=== PATIENT | female | born 1960 | race African-American/Black ===

== ENCOUNTER 2020-05-28 14:34 | Outpatient (REF) | payer OTHER, SELFPAY ==
--- NOTE | 2020-05-28 14:39 | US_ITS ---
EXAMINATION: ULTRASOUND SOFT TISSUE HEAD AND NECK CLINICAL INFORMATION: Localized enlarged lymph nodes. COMPARISON: None TECHNIQUE: Ultrasound imaging through bilateral neck was performed. FINDINGS: Both submandibular glands are homogeneous in echotexture with the right gland slightly larger than the left with right intraparotid lymph node measuring 0.85 cm. The left submandibular gland is unremarkable. A few scattered lymph nodes are seen in the right submandibular space measuring 1.1 x 0.5 x 1.0 cm and 0.9 x 0.5 x 0.9 cm in right lateral neck. US/US soft tiss head and/or neck IMPRESSION: Slightly asymmetrically enlarged right submandibular gland with intraparotid lymph node and right neck small lymph nodes likely benign. The left submandibular gland is unremarkable.
== END 2020-05-28 14:35 | disposition home or self-care (01) ==
LOC: HO.HMGCX 14:34
PROVIDERS: PCP Internal Medicine; Visit Provider Internal Medicine
DX: R59.0 Localized enlarged lymph nodes (principal)
CPT/HCPCS: 76536

== ENCOUNTER 2020-06-30 16:17 | Outpatient (REF) | payer OTHER, SELFPAY | END 2020-06-30 16:18 | disposition home or self-care (01) | LOC: HO.LNP 16:17 | PROVIDERS: Visit Provider Nurse Practitioner Family | DX: R35.0 Frequency of micturition (principal) | CPT/HCPCS: 87086 ==

== ENCOUNTER 2020-09-15 10:50 | Outpatient (REF) | payer OTHER, SELFPAY ==
[2020-09-15 13:44] LABS: MANUAL DIFF FLAG NO
[2020-09-15 13:52] LABS: Basophils Absolute Auto 0.1 X10*3/uL (0.0-0.2); Basophils Percent Auto 0.6 % (0-2); Eosinophils Absolute Auto 0.2 X10*3/uL (0.0-0.4); Eosinophils Percent Auto 2.3 % (0-4); Hematocrit 39.2 % (37-47); Hemoglobin 13.1 g/dl (12.0-16.0); Imm Gran Abs Auto 0.02 X10*3/uL (0.00-0.03); Imm Gran Pct Auto 0.3 % (0.0-0.4); Lymphocytes Absolute Auto 1.5 X10*3/uL (1.2-4.9); Lymphocytes Percent Auto 18.5 % (20-40); Mean Corpuscular HGB Conc 33.4 g/dl (31.0-35.0); Mean Corpuscular Hemoglobin 25.2 pg (27.0-33.0); Mean Corpuscular Volume 75.4 fL (80-98); Mean Platelet Volume 12.6 fL (9.4-12.3); Monocytes Absolute Auto 0.7 X10*3/uL (0.1-1.2); Monocytes Percent Auto 9.2 % (2-11); Neutrophils Absolute Auto 5.4 X10*3/uL (2.0-8.3); Neutrophils Percent Auto 69.1 % (45-73); Platelet Count 173 X10*3/uL (160-400); Red Cell Distribution Width 13.8 % (11.0-16.0); White Blood Count 7.8 X10*3/uL (4.8-10.8)
[2020-09-15 14:11] LABS: Alanine Aminotransferase 18 U/L (0-31); Albumin Level 4.3 g/dL (3.5-5.0); Alkaline Phosphatase 96 U/L (39-117); Anion Gap 14 (12-20); Aspartate Amino Transferase 20 U/L (5-31); Bilirubin Total 0.7 mg/dL (0.0-1.0); Blood Urea Nitrogen 18 mg/dL (9-16); Calcium 9.3 mg/dL (8.4-10.2); Carbon Dioxide 26 mmol/L (22-29); Chloride 104 mmol/L (96-108); Cholesterol 219 mg/dL; Estimated Glomerular Filt Rate > 60; Glucose Fasting 94 mg/dL (60-99); HDL Cholesterol 70 mg/dL; LDL Cholesterol Calculated 122 mg/dl; Potassium 4.1 mmol/L (3.3-5.1); Sodium 140 mmol/L (135-145); Total Protein 7.1 g/dL (6.5-8.0); Triglycerides 138 mg/dL
== END 2020-09-15 10:51 | disposition home or self-care (01) ==
LOC: HO.HMGCLDS 10:50
PROVIDERS: PCP Internal Medicine; Visit Provider Internal Medicine
DX: Z00.00 Encounter for general adult medical examination without abnormal findings (principal)
CPT/HCPCS: 36415; 80053; 80061; 84443; 85025

== ENCOUNTER 2020-09-22 14:26 | Outpatient (REF) | payer OTHER, SELFPAY ==
--- NOTE | ~2020-09-22 | US_ITS ---
EXAMINATION: US SOFT TISSUE NECK CLINICAL INFORMATION: Enlarged lymph nodes. Right clavicular adenopathy. COMPARISON: None TECHNIQUE: Ultrasound of the neck soft tissues is performed with high-frequency carlton-scale imaging and color Doppler. FINDINGS: THYROID BED: There are 2 small lymph nodes seen in the right supraclavicular area described by the patient. They measure 0.7 x 0.4 x 0.9 cm and 0.4 x 0.4 x 0.7 cm. No soft tissue abnormality seen. There is no abnormality seen in the contralateral left clavicular region. US/US soft tiss head and/or neck IMPRESSION: Two small lymph nodes seen in the right clavicular region. These lymph nodes have benign architecture with central echogenic medulla.
== END 2020-09-22 14:27 | disposition home or self-care (01) ==
LOC: HO.HMGCX 14:26
PROVIDERS: PCP Internal Medicine; Visit Provider Internal Medicine
DX: R59.9 Enlarged lymph nodes, unspecified (principal)
CPT/HCPCS: 76536

== ENCOUNTER 2021-04-07 13:55 | Outpatient (REF) | payer OTHER, SELFPAY ==
[2021-04-07 15:03] LABS: Influenza A PCR NEGATIVE (Negative); Influenza B PCR NEGATIVE (Negative); Resp Syncy Virus RNA Qual PCR NEGATIVE (Negative); SARS COV2 PCR INHOUSE NEGATIVE (Negative)
== END 2021-04-07 13:56 | disposition home or self-care (01) ==
LOC: HO.LNP 13:55
PROVIDERS: Visit Provider Internal Medicine
DX: Z20.822 Contact with and (suspected) exposure to COVID-19 (principal); R05.9 Cough, unspecified
CPT/HCPCS: 0241U

== ENCOUNTER 2021-07-16 10:05 | Outpatient (REF) | payer OTHER, SELFPAY ==
[2021-07-16 11:23] LABS: Hematocrit 39.1 % (37.0-47.0); Hemoglobin 13.2 g/dl (12.0-16.0); Mean Corpuscular HGB Conc 33.8 g/dl (31.0-35.0); Mean Corpuscular Hemoglobin 25.6 pg (27.0-33.0); Mean Corpuscular Volume 75.9 fL (80.0-98.0); Mean Platelet Volume 12.8 fL (9.4-12.3); Platelet Count 259 X10*3/uL (160-400); Red Blood Count 5.15 X10*6/uL (4.20-5.50); Red Cell Distribution Width 12.9 % (11.0-16.0); White Blood Count 10.3 X10*3/uL (4.8-10.8)
[2021-07-16 11:35] LABS: Appearance Urine CLEAR; Color Urine YELLOW; Glucose Urine UA NEG (NEG); Leukocyte Esterase Urine NEG (NEG); Nitrite Urine NEG (NEG); Specific Gravity - Urine 1.025 (1.005-1.025); Urine Blood NEG (NEG); Urine Ketones NEG (NEG); Urine Protein NEG (NEG-TRACE)
[2021-07-16 12:02] LABS: Alanine Aminotransferase 41 U/L (0-31); Albumin Level 4.2 g/dL (3.5-5.0); Alkaline Phosphatase 115 U/L (39-117); Anion Gap 12 (12-20); Aspartate Amino Transferase 33 U/L (5-31); Bilirubin Total 0.7 mg/dL (0.0-1.0); Blood Urea Nitrogen 15 mg/dL (9-16); Calcium 9.7 mg/dL (8.4-10.2); Carbon Dioxide 27 mmol/L (22-29); Chloride 107 mmol/L (96-108); Cholesterol 258 mg/dL; Estimated Glomerular Filt Rate > 60; Glucose Fasting 82 mg/dL (60-99); HDL Cholesterol 62 mg/dL; LDL Cholesterol Calculated 168 mg/dl; Sodium 142 mmol/L (135-145); Total Protein 7.1 g/dL (6.5-8.0); Triglycerides 143 mg/dL
[2021-07-16 12:22] LABS: TSH reflex Free T4 2.82 uIU/mL (0.32-4.0)
== END 2021-07-16 10:06 | disposition home or self-care (01) ==
LOC: HO.HMGCLDS 10:05
PROVIDERS: PCP Internal Medicine; Visit Provider Internal Medicine
DX: Z00.00 Encounter for general adult medical examination without abnormal findings (principal)
CPT/HCPCS: 36415; 80053; 80061; 81003; 84443; 85027

== ENCOUNTER 2022-03-09 13:19 | Outpatient (REF) | payer OTHER, SELFPAY ==
[2022-03-09 13:45] LABS: Binax Internal Control QC Valid; Binax Now Covid-19 Ag Negative (Negative); Binax Performed by: HO.BONILM
== END 2022-03-09 13:20 | disposition home or self-care (01) ==
LOC: HO.HMGCLDS 13:19
PROVIDERS: PCP Internal Medicine; Visit Provider Physician Assistant
DX: Z20.822 Contact with and (suspected) exposure to COVID-19 (principal); J32.9 Chronic sinusitis, unspecified
CPT/HCPCS: 87811; C9803

== ENCOUNTER 2022-04-02 17:47 | Outpatient (REF) | payer OTHER, SELFPAY ==
[2022-04-02 18:45] LABS: Influenza A PCR POSITIVE (Negative); Influenza B PCR NEGATIVE (Negative); Resp Syncy Virus RNA Qual PCR NEGATIVE (Negative); SARS COV2 PCR INHOUSE NEGATIVE (Negative)
== END 2022-04-02 17:48 | disposition home or self-care (01) ==
LOC: HO.LNP 17:47
PROVIDERS: Visit Provider Internal Medicine
DX: Z20.822 Contact with and (suspected) exposure to COVID-19 (principal); R43.9 Unspecified disturbances of smell and taste
CPT/HCPCS: 0241U

== ENCOUNTER 2023-02-18 08:43 | Outpatient (AMB) | payer OTHER, SELFPAY ==
[2023-02-18 08:45] VITALS: BP 100/66; PULSE 82; O2SAT 97; BMI 30.5
--- NOTE | 2023-02-18 08:45 | MHC.PC.OV ---
Vital Signs 02/18/23 08:45 Height 5 ft 2 in Weight 167 lb BMI 30.5 BP 100/66 Blood Pressure Location Lt brachial Position Sitting Pulse 82 Pulse Source Pulse Oximeter Pulse Oximetry (%) 97 Oxygen Delivery Method Room Air Intake Visit Reasons: Annual PE Intake Note: Pt is here today for PE. Allergies doxycycline Adverse Reaction (Intermediate, Verified 02/18/23 08:50) vomiting Medication List - Last Reconciled 02/18/23 by Elizabeth Saucedo MD albuterol sulfate 90 mcg/actuation 2 puffs PO Q6H PRN betamethasone valerate 0.1% appl topical celecoxib 200 mg PO DAILY loratadine 10 mg PO DAILY omeprazole 20 mg PO BID PRN umeclidinium-vilanterol 62.5-25 mcg/actuation (Anoro Ellipta) 1 inh inhalation DAILY zolpidem 5 mg PO BEDTIME PRN Tobacco use date assessed: 02/18/23 Dental Screening Dental Screen Date: 02/18/23 Did you have a dental visit in the last 12 months?: Yes Did you have a dental problem in the last 6 months where you did not have access to dental care?: No Was dental information given to patient?: Patient has dentist HPI Annual PE HPI Details Pt presents for PE. She complains of sinus congestion facial pain postnasal drip low-grade fever for 2 weeks. Patient complains of chronic urinary incontinence and frequent urination getting up at night a few times to urinate. She also reports chronic insomnia and zolpidem has not been helpful recently. [facility] Medical History COPD (chronic obstructive pulmonary disease) Esophageal stricture Cough Urinary incontinence Plantar fasciitis Sinusitis Vertigo Annual physical exam Hearing deficit Adenopathy Adenopathy, cervical Asthma Numbness of toes Interstitial lung disease GERD (gastroesophageal reflux disease) Anxiety and depression Surgical History S/P AMARILIS (total abdominal hysterectomy) No pertinent past surgical history Family History Father Substance use disorder Mother No problems noted. Son No problems noted. Brother Colon polyp Social History Housing: House Alcohol intake: current Alcohol intake frequency: holidays/special occasions only Patient Tobacco Use Status: Former Tobacco user e-Cigarette/Vaping Use: Never Used Current occupational status: retired Cognitive needs: No Hearing needs: No Vision needs: Yes Questionnaire Thrive Questionnaire Date Thrive assessed: 09/03/21 AUDIT C Alcohol Use Questionnaire (AUDIT-C) 1. How often do you have a drink containing alcohol?: 2-3 times a week 2. How many drinks containing alcohol do you have on a typical day when you are drinking?: 1 or 2 3. How often do you have six or more drinks on one occasion?: Never Total Score: 3 GINNA-7 AMB Questionnaire GINNA-7 Date GINNA - 7 assessed: 09/03/21 Source: Developed by Drs. Kishor García, Casi Beltran, Vahid Monterroso and colleagues, with an educational brayan from [employer]. Review of Systems Const All systems reviewed & are unremarkable except as noted in HPI and below Reports no additional complaints Eyes Reports no additional complaints ENT Reports no additional complaints Card Reports no additional complaints Resp Reports no additional complaints GI Reports no additional complaints Reports no additional complaints Musc Reports no additional complaints Physical exam (Primary Care) Vital Signs: Last Vital Signs Pulse 82 02/18/23 08:45 BP 100/66 02/18/23 08:45 Pulse Ox 97 02/18/23 08:45 Oxygen Delivery Method Room Air 02/18/23 08:45 BMI result Body Mass Index 30.5 Tobacco/Smoking Status: Tobacco use Status Tobacco use date assessed 02/18/23 02/18/23 08:58 Patient Tobacco Use Status Former Tobacco user 02/18/23 08:58 e-Cigarette/Vaping Use Never Used 02/18/23 08:47 Thrive Assessment: Date of Thrive Assessment Date Thrive assessed 09/03/21 02/18/23 08:47 Const General: no acute distress HENMT Head: Yes normal to inspection Ears: hearing grossly normal bilaterally Face and sinus: Yes normal facial exam Throat: Yes posterior oropharynx normal Eyes General: appearance normal, both eyes and all related structures Neck Neck: Yes no lymphadenopathy and Yes supple Resp Effort & Inspection: normal respiratory effort Auscultation: clear to auscultation bilaterally Cardio Rhythm: regular rhythm Heart sounds: S1 normal heart sound present and S2 normal heart sound present GI Inspection: Yes normal to inspection Palpation (GI): Soft to palpation Percussion: Yes normal to percussion Auscultation: normal bowel sounds Assessment and Plan Assessment & Plan (1) COPD (chronic obstructive pulmonary disease): Code(s): J44.9 - Chronic obstructive pulmonary disease, unspecified Plan: Continue Anoro and follow-up with press washer at [facility] (2) Annual physical exam: Code(s): Z00.00 - Encounter for general adult medical examination without abnormal findings Plan: Well-balanced diet regular physical activity discussed with the patient she will have a fasting blood work today. She is up-to-date with mammogram colonoscopy and Pap smear by bed bug exterminator (3) Frequent urinary incontinence: Code(s): N39.498 - Other specified urinary incontinence Plan: Check UA and culture, refer to urologist and try oxybutynin (4) Postmenopausal: Code(s): Z78.0 - Asymptomatic menopausal state Plan: Check dexa Orders: Orders Complete Blood Count Auto Diff Today J44.9 - Chronic obstructive pulmonary disease, unspecified, Z00.00 - Encounter for general adult medical examination without abnormal findings UA CC w/rflx Micro + Cult Today N39.498 - Other specified urinary incontinence Comprehensive [place]. Panel Fast Today J44.9 - Chronic obstructive pulmonary disease, unspecified, Z00.00 - Encounter for general adult medical examination without abnormal findings TSH reflex Free T4 Today J44.9 - Chronic obstructive pulmonary disease, unspecified, Z00.00 - Encounter for general adult medical examination without abnormal findings Lipid Panel Today J44.9 - Chronic obstructive pulmonary disease, unspecified, Z00.00 - Encounter for general adult medical examination without abnormal findings XR DEXA axial skeleton Today Z78.0 - Asymptomatic menopausal state Referrals Urology Referral N39.498 - Other specified urinary incontinence Medications: New oxybutynin chloride ER 5 mg PO DAILY 90 tabs 0RF trazodone 100 mg (2 x 50 mg) PO BEDTIME PRN 60 tabs 1RF sleep azithromycin For 250 mg dose pack: take 500 mg today (day 1), then 250 mg for 4 days (days 2-5) PO 6 tabs 0RF Changed From omeprazole 20 mg PO DAILY PRN 90 caps 3RF GERD To omeprazole 20 mg PO BID PRN GERD Coding Level of Care Code Est Pt Prev Care 40-64y(00701) Diagnoses COPD (chronic obstructive pulmonary disease) J44.9 Annual physical exam Z00.00 Frequent urinary incontinence N39.498 Postmenopausal Z78.0
== END 2023-02-18 09:50 | disposition home or self-care (01) ==
PROVIDERS: PCP Internal Medicine; Visit Provider Internal Medicine
DX: J44.9 Chronic obstructive pulmonary disease, unspecified (principal); Z00.00 Encounter for general adult medical examination without abnormal findings; N39.498 Other specified urinary incontinence; Z78.0 Asymptomatic menopausal state
CPT/HCPCS: 99396

== ENCOUNTER 2023-02-18 09:28 | Outpatient (REF) | payer OTHER, SELFPAY ==
[2023-02-18 11:19] LABS: MANUAL DIFF FLAG NO
[2023-02-18 11:38] LABS: Appearance Urine Clear; Color Urine Yellow; Glucose Urine UA Negative (Negative); Leukocyte Esterase Urine Negative (Negative); Nitrite Urine Negative (Negative); Urine Blood Negative (Negative); Urine Ketones Negative (Negative); Urine Protein Negative (Neg-Trace)
[2023-02-18 12:00] LABS: Basophils Absolute Auto 0.1 X10*3/uL (0.0-0.2); Basophils Percent Auto 0.8 % (0-2); Eosinophils Absolute Auto 0.3 X10*3/uL (0.0-0.4); Hematocrit 38.4 % (37.0-47.0); Hemoglobin 13.2 g/dl (12.0-16.0); Imm Gran Abs Auto 0.03 X10*3/uL (0.00-0.03); Imm Gran Pct Auto 0.4 % (0.0-0.4); Lymphocytes Absolute Auto 1.6 X10*3/uL (1.2-4.9); Lymphocytes Percent Auto 21.3 % (20-40); Mean Corpuscular HGB Conc 34.4 g/dl (31.0-35.0); Mean Corpuscular Hemoglobin 26.2 pg (27.0-33.0); Mean Corpuscular Volume 76.3 fL (80.0-98.0); Mean Platelet Volume 12.6 fL (9.4-12.3); Monocytes Absolute Auto 0.7 X10*3/uL (0.1-1.2); Monocytes Percent Auto 9.6 % (2-11); Neutrophils Absolute Auto 4.6 x10*3/uL (2.0-8.3); Neutrophils Percent Auto 63.9 % (45-73); Platelet Count 247 X10*3/uL (160-400); Red Blood Count 5.03 X10*6/uL (4.20-5.50); Red Cell Distribution Width 13.4 % (11.0-16.0); White Blood Count 7.3 X10*3/uL (4.8-10.8)
[2023-02-18 12:35] LABS: Alanine Aminotransferase 18 U/L (0-31); Albumin Level 4.2 g/dL (3.5-5.0); Alkaline Phosphatase 106 U/L (39-117); Anion Gap 14 (12-20); Aspartate Amino Transferase 19 U/L (5-31); Bilirubin Total 0.5 mg/dL (0.0-1.0); Blood Urea Nitrogen 16 mg/dL (9-16); Calcium 9.4 mg/dL (8.4-10.2); Carbon Dioxide 26 mmol/L (22-29); Chloride 107 mmol/L (96-108); Cholesterol 232 mg/dL (<200); Estimated Glomerular Filt Rate > 60; Glucose Fasting 103 mg/dL (60-99); HDL Cholesterol 67 mg/dL (>40); LDL Cholesterol Calculated 132 mg/dL (<100); Potassium 3.9 mmol/L (3.3-5.1); Sodium 143 mmol/L (135-145); Triglycerides 165 mg/dL (<150)
[2023-02-18 12:50] LABS: TSH reflex Free T4 2.27 uIU/mL (0.32-4.0)
== END 2023-02-18 09:29 | disposition home or self-care (01) ==
LOC: HO.HMGCLDS 09:28
PROVIDERS: PCP Internal Medicine; Visit Provider Internal Medicine
DX: Z00.00 Encounter for general adult medical examination without abnormal findings (principal); J44.9 Chronic obstructive pulmonary disease, unspecified; N39.498 Other specified urinary incontinence; R43.9 Unspecified disturbances of smell and taste; Z78.0 Asymptomatic menopausal state
CPT/HCPCS: 36415; 80053; 80061; 81003; 84443; 85025

== ENCOUNTER 2023-04-15 14:53 | Outpatient (REF) | payer OTHER, SELFPAY | END 2023-04-15 14:54 | disposition home or self-care (01) | LOC: HO.MAMMO 14:53 | PROVIDERS: PCP Internal Medicine; Visit Provider Internal Medicine | DX: Z13.89 Encounter for screening for other disorder (principal) ==

== ENCOUNTER 2023-05-03 13:48 | Outpatient (REF) | payer OTHER, SELFPAY ==
--- NOTE | ~2023-05-03 | MM_ITS ---
EXAMINATION: BONE DENSITOMETRY CLINICAL INDICATION: Asymptomatic menopausal state. COMPARISON: This is the patient's baseline examination. TECHNIQUE: Using a [employer] DXA System (software version: 13.1) manufactured by [employer], dual-energy x-ray absorptiometry was performed of the lumbar spine and left hip. The images are of good technical quality. Summary results are attached. FINDINGS: LEFT FEMUR, NECK: BMD 0.700 g/cm2, Z-score -2.2, T-score -2.4, osteopenia. LEFT FEMUR, TOTAL: BMD 0.727 g/cm2, Z-score -2.3, T-score -2.2, osteopenia. AP SPINE L1-L4: BMD 0.878 g/cm2, Z-score -2.1, T-score -2.5, osteoporosis. IDENTIFIED RISK FACTORS: Menopause, hysterectomy. HISTORY OF FRACTURE: None listed. MEDICATIONS: None listed. MM/XR DEXA axial skeleton IMPRESSION: 1. DIAGNOSIS: Osteoporosis based on the lowest T-score value of -2.5 in the lumbar spine applying World Health Organization criteria. 2. 10-YEAR FRACTURE RISK PREDICTION, FRAX: According to the guidelines, FRAX calculation should only be performed on patients in the osteopenia bone density category. Therefore, FRAX was not performed on this patient. 3. Treatment Recommendations: NOF guidelines recommend consideration for treatment in postmenopausal women and men age 50 and older presenting with the following: -A hip or vertebral (clinical or morphometric) fracture. -T-score less than or equal to -2.5 at the femoral neck or spine after appropriate evaluation to exclude secondary causes. -Low bone mass at the hip or spine and a 10-year fracture probability by FRAX of greater than or equal to 3% for hip fracture or greater than or equal to 20% for major osteoporotic fracture based on the [place] adapted WHO algorithm. 4. Other Recommendations: All treatment decisions require clinical judgment and consideration of individual patient factors, including patient preferences, comorbidities, previous drug use, risk factors not captured in the FRAX model (e.g. frailty, falls, vitamin D deficiency, increased bone turnover, interval significant decline in bone density) and possible under or overestimation of fracture risk by FRAX. Additional medical evaluation for secondary cause of low bone mineral density may be appropriate. FUTURE SCAN RECOMMENDATION: People with diagnosed cases of osteoporosis or at high risk for fracture should have regular bone mineral density tests. For patients eligible for Medicare, routine testing is allowed once every 2 years. The testing frequency can be increased to one year for patients who have rapidly progressing disease, those who are receiving or discontinuing medical therapy to restore bone mass, or have additional risk factors.
== END 2023-05-03 13:49 | disposition home or self-care (01) ==
LOC: HO.MAMMO 13:48
PROVIDERS: PCP Internal Medicine; Visit Provider Internal Medicine
DX: Z13.820 Encounter for screening for osteoporosis (principal); Z78.0 Asymptomatic menopausal state
CPT/HCPCS: 77080

== ENCOUNTER 2023-05-25 14:14 | Outpatient (AMB) | payer OTHER, SELFPAY ==
[2023-05-25 14:16] VITALS: BP 110/78; PULSE 95; O2SAT 98; BMI 30.5
--- NOTE | 2023-05-25 14:16 | MHC.PC.OV ---
Vital Signs 05/25/23 14:16 Height 5 ft 2 in Weight 167 lb BMI 30.5 BP 110/78 Blood Pressure Location Lt brachial Position Sitting Pulse 95 Pulse Source Pulse Oximeter Pulse Oximetry (%) 98 Oxygen Delivery Method Room Air Intake Visit Reasons: Follow up on Bone Density results Intake Note: Pt is here today for a follow up visit to discuss bone density results. Allergies doxycycline Adverse Reaction (Intermediate, Verified 05/25/23 14:17) vomiting Medication List - Last Reconciled 05/25/23 by Elizabeth Saucedo MD albuterol sulfate 90 mcg/actuation 2 puffs PO Q6H PRN celecoxib 200 mg PO DAILY PRN cholecalciferol (vitamin D3) 50 mcg (2 drps) PO DAILY loratadine 10 mg PO DAILY PRN omeprazole 20 mg PO BID PRN oxybutynin chloride ER 5 mg PO DAILY pravastatin 40 mg PO DAILY trazodone 100 mg (2 x 50 mg) PO BEDTIME PRN zolpidem 5 mg PO BEDTIME PRN Tobacco use date assessed: 05/25/23 Dental Screening Dental Screen Date: 05/25/23 Did you have a dental visit in the last 12 months?: Yes Did you have a dental problem in the last 6 months where you did not have access to dental care?: No Was dental information given to patient?: Patient has dentist HPI Follow up on Bone Density results HPI Details Pt presents for f/u hyperlipid. Patient has not been taking pravastatin regularly because of chronic constipation. DEXA results showing osteoporosis discussed with the patient. Treatment options were discussed patient can not take Fosamax because of history of chronic esophageal stricture and hiatal hernia. Patient complains of chronic insomnia and has been taking zolpidem as needed. She started mindfulness exercises PFSH Medical History (Updated 05/25/23 @ 15:09 by Elizabeth Saucedo MD) COPD (chronic obstructive pulmonary disease) Esophageal stricture Cough Urinary incontinence Plantar fasciitis Sinusitis Vertigo Annual physical exam Hearing deficit Adenopathy Adenopathy, cervical Asthma Numbness of toes Interstitial lung disease GERD (gastroesophageal reflux disease) Anxiety and depression Surgical History S/P AMARILIS (total abdominal hysterectomy) No pertinent past surgical history Family History Father Substance use disorder Mother No problems noted. Son No problems noted. Brother Colon polyp Social History Housing: House Alcohol intake: current Alcohol intake frequency: holidays/special occasions only Patient Tobacco Use Status: Former Tobacco user e-Cigarette/Vaping Use: Never Used Current occupational status: retired Cognitive needs: No Hearing needs: No Vision needs: No Questionnaire PHQ-9 Over the last 2 weeks, how often have you been bothered by any of the following problems? 1. Little interest or pleasure in doing things: more than half the days 2. Feeling down, depressed, or hopeless: several days 3. Trouble falling or staying asleep, or sleeping too much: nearly every day 4. Feeling tired or having little energy: nearly every day 5. Poor appetite or overeating: not at all 6. Feeling bad about yourself - or that you are a failure or have let yourself or your family down: several days 7. Trouble concentrating on things, such as reading the newspaper or watching television: not at all 8. Moving or speaking so slowly that other people could have noticed. Or the opposite - being so fidgety or restless that you have been moving around a lot more than usual: not at all 9. Thoughts that you would be better off or of hurting yourself in some way: not at all Total score: 10 Depression Screening Interpretation: Positive Depression Screening Done: Yes Source: Developed by Drs. Kishor García, Casi Beltran, Vahid Monterroso and colleagues, with an educational brayan from [email or web address]. Thrive Questionnaire Date Thrive assessed: 05/25/23 I am a: Patient What is your living situation today?: I have a steady place to live Within the past 12 months, did the food you bought not last and you didn't have the money to get more?: Never true Within the past 12 months, did you worry whether your food would run out before you got money to buy more?: Never true Do you have trouble paying for medicines?: No Do you have trouble getting transportation to medical appointments?: No Do you have trouble paying your heating and electricity bill?: No Do you have trouble taking care of your child, family member or friend?: No Do you have trouble with day-to-day activities such as bathing, preparing meals, shopping, managing finances, etc.?: No Are you currently unemployed and looking for a job?: No Are you interested in more education?: No Please select the resources that you would like help with: None Currently or been in a relationship where the following occur: no concerns reported THRIVE Score: 0 AUDIT C Alcohol Use Questionnaire (AUDIT-C) 1. How often do you have a drink containing alcohol?: Monthly or less 2. How many drinks containing alcohol do you have on a typical day when you are drinking?: 1 or 2 3. How often do you have six or more drinks on one occasion?: Never Total Score: 1 GINNA-7 AMB Questionnaire GINNA-7 Date GINNA - 7 assessed: 05/25/23 Feeling nervous, anxious, or on edge: 1 = Several days Not being able to stop or control worryin = Several days Worrying too much about different things: 1 = Several days Trouble relaxin = Several days Being so restless that it is hard to sit still: 1 = Several days Becoming easily annoyed or irritable: 1 = Several days Feeling afraid as if something awful might happen: 1 = Several days Total GINNA-7 score (0-4 normal; 5-9 mild; 10-14 moderate; 15-21 severe): 7 Source: Developed by Drs. Kishor García, Casi Beltran, Vahid Monterroso and colleagues, with an educational brayan from [email or web address]. Review of Systems Const All systems reviewed & are unremarkable except as noted in HPI and below Reports no additional complaints Eyes Reports no additional complaints ENT Reports no additional complaints Card Reports no additional complaints Resp Reports no additional complaints GI Reports no additional complaints Reports no additional complaints Physical exam (Primary Care) Vital Signs: Last Vital Signs Pulse 95 05/25/23 14:16 BP 110/78 05/25/23 14:16 Pulse Ox 98 05/25/23 14:16 Oxygen Delivery Method Room Air 05/25/23 14:16 BMI result Body Mass Index 30.5 Tobacco/Smoking Status: Tobacco use Status Tobacco use date assessed 05/25/23 05/25/23 14:24 Patient Tobacco Use Status Former Tobacco user 05/25/23 14:24 e-Cigarette/Vaping Use Never Used 05/25/23 14:24 Depression Screening Interpretation: Positive Thrive Assessment: Date of Thrive Assessment Date Thrive assessed 09/03/21 05/25/23 14:24 Currently or been in a relationship where the following occur: no concerns reported Const General: no acute distress HENMT Head: Yes normal to inspection Ears: hearing grossly normal bilaterally General nose exam: Normal external nose present Face and sinus: Yes normal facial exam Mouth: Normal oral and palatal mucosa present Neck Neck: Yes no lymphadenopathy and Yes supple Resp Effort & Inspection: normal respiratory effort Auscultation: clear to auscultation bilaterally Cardio Rhythm: regular rhythm Heart sounds: S1 normal heart sound present and S2 normal heart sound present GI Inspection: Yes normal to inspection Palpation (GI): Soft to palpation Percussion: Yes normal to percussion Auscultation: normal bowel sounds Assessment and Plan Assessment & Plan (1) Hyperlipidemia: Code(s): E78.5 - Hyperlipidemia, unspecified Plan: Low-cholesterol diet increase physical activity weight loss discussed with the patient patient will restart statin and have lipid profile in 3 months (2) Osteoporosis: Comment: DEXA 05/25 T score -2.5, patient can not take Fosamax because of hiatal hernia and and recurrent esophageal stricture Code(s): M81.0 - Age-related osteoporosis without current pathological fracture Plan: Treatment options discussed with the patient. Patient is on vacation to [place] and then [place] she will start vitamin D and calcium supplement and follow-up in 3 months to discuss Reclast infusion (3) Constipation: Comment: Patient will discuss colonoscopy with her GI at [facility] Code(s): K59.00 - Constipation, unspecified Plan: Patient will discuss with her research instrumentation technician at [facility] a screening colonoscopy because of a new onset constipation and the family history of colon polyps (her brothers) Orders: Orders Vitamin D 25-OH Total 3 Months E78.5 - Hyperlipidemia, unspecified, M81.0 - Age-related osteoporosis without current pathological fracture Comprehensive [place]. Panel Fast 3 Months E78.5 - Hyperlipidemia, unspecified, M81.0 - Age-related osteoporosis without current pathological fracture Lipid Panel 3 Months E78.5 - Hyperlipidemia, unspecified, M81.0 - Age-related osteoporosis without current pathological fracture Complete Blood Count Auto Diff 3 Months E78.5 - Hyperlipidemia, unspecified, M81.0 - Age-related osteoporosis without current pathological fracture Medications: New cholecalciferol (vitamin D3) 50 mcg (2 drps) PO DAILY 60 mL 2RF calcium carbonate 500 mg PO DAILY 90 tabs 2RF Changed From loratadine 10 mg PO DAILY 90 caps 3RF To loratadine 10 mg PO DAILY PRN Coding Level of Care Code Est Pt Level 4 (67579) Diagnoses Hyperlipidemia E78.5 Osteoporosis M81.0 Constipation K59.00
== END 2023-05-25 15:10 | disposition home or self-care (01) ==
PROVIDERS: PCP Internal Medicine; Visit Provider Internal Medicine
DX: E78.5 Hyperlipidemia, unspecified (principal); M81.0 Age-related osteoporosis without current pathological fracture; K59.00 Constipation, unspecified
CPT/HCPCS: 99214

== ENCOUNTER 2024-03-08 12:53 | Outpatient (AMB) | payer OTHER, SELFPAY ==
--- NOTE | 2024-03-08 13:00 | MHC.PC.OV ---
Vital Signs 03/08/24 13:01 Height 5 ft 2 in Weight 178 lb 2 oz BMI 32.6 BP 116/72 Blood Pressure Location Lt brachial Position Sitting Pulse 101 H Pulse Source Pulse Oximeter Pulse Oximetry (%) 96 Oxygen Delivery Method Room Air Intake Visit Reasons: Annual PE Allergies doxycycline Adverse Reaction (Intermediate, Verified 03/08/24 13:04) vomiting Medication List - Last Reconciled 03/08/24 by Elizabeth Saucedo MD albuterol sulfate 90 mcg/actuation 2 puffs PO Q6H PRN loratadine 10 mg PO DAILY PRN omeprazole 20 mg PO BID PRN oxybutynin chloride ER 5 mg PO DAILY pravastatin 40 mg PO DAILY Tobacco use date assessed: 03/08/24 Dental Screening Dental Screen Date: 03/08/24 Did you have a dental visit in the last 12 months?: Yes Did you have a dental problem in the last 6 months where you did not have access to dental care?: No Was dental information given to patient?: Patient has dentist HPI Annual PE HPI Details Pt presents for PE. [facility] Medical History (Updated 03/08/24 @ 14:02 by Elizabeth Saucedo MD) COPD (chronic obstructive pulmonary disease) Esophageal stricture Cough Urinary incontinence Plantar fasciitis Sinusitis Vertigo Annual physical exam Hearing deficit Adenopathy Adenopathy, cervical Asthma Numbness of toes Interstitial lung disease GERD (gastroesophageal reflux disease) Anxiety and depression Surgical History S/P AMARILIS (total abdominal hysterectomy) No pertinent past surgical history Family History Father Substance use disorder Mother No problems noted. Son No problems noted. Brother Colon polyp Social History Housing: House Alcohol intake: current Alcohol intake frequency: holidays/special occasions only Patient Tobacco Use Status: Former Tobacco user e-Cigarette/Vaping Use: Never Used Current occupational status: retired Cognitive needs: No Hearing needs: No Vision needs: No Questionnaire PHQ-9 Over the last 2 weeks, how often have you been bothered by any of the following problems? 1. Little interest or pleasure in doing things: several days 2. Feeling down, depressed, or hopeless: several days 3. Trouble falling or staying asleep, or sleeping too much: more than half the days 4. Feeling tired or having little energy: more than half the days 5. Poor appetite or overeating: not at all 6. Feeling bad about yourself - or that you are a failure or have let yourself or your family down: not at all 7. Trouble concentrating on things, such as reading the newspaper or watching television: not at all 8. Moving or speaking so slowly that other people could have noticed. Or the opposite - being so fidgety or restless that you have been moving around a lot more than usual: several days 9. Thoughts that you would be better off or of hurting yourself in some way: not at all Total score: 7 Depression Screening Interpretation: Negative Depression Screening Done: Yes 00924 - PHQ-9 Billing: Yes Source: Developed by Drs. Kishor García, Casi Beltran, Vahid Monterroso and colleagues, with an educational brayan from [employer]. Thrive Questionnaire Date Thrive assessed: 03/08/24 I am a: Patient What is your living situation today?: I have a steady place to live Within the past 12 months, did the food you bought not last and you didn't have the money to get more?: Never true Within the past 12 months, did you worry whether your food would run out before you got money to buy more?: Never true Do you have trouble paying for medicines?: No Do you have trouble getting transportation to medical appointments?: No Do you have trouble paying your heating and electricity bill?: No Do you have trouble taking care of your child, family member or friend?: No Do you have trouble with day-to-day activities such as bathing, preparing meals, shopping, managing finances, etc.?: No Are you currently unemployed and looking for a job?: No Are you interested in more education?: No Please select the resources that you would like help with: None Currently or been in a relationship where the following occur: No concerns reported THRIVE Score: 0 AUDIT C Alcohol Use Questionnaire (AUDIT-C) 1. How often do you have a drink containing alcohol?: 4 or more times a week 2. How many drinks containing alcohol do you have on a typical day when you are drinking?: 1 or 2 3. How often do you have six or more drinks on one occasion?: Never Total Score: 4 Score Reviewed/Action Taken: Yes GINNA-7 AMB Questionnaire GINNA-7 Date GINNA - 7 assessed: 03/08/24 Feeling nervous, anxious, or on edge: 1 = Several days Not being able to stop or control worryin = Several days Worrying too much about different things: 1 = Several days Trouble relaxin = Several days Being so restless that it is hard to sit still: 1 = Several days Becoming easily annoyed or irritable: 1 = Several days Feeling afraid as if something awful might happen: 1 = Several days Total GINNA-7 score (0-4 normal; 5-9 mild; 10-14 moderate; 15-21 severe): 7 Source: Developed by Drs. Kishor García, Casi Beltran, Vahid Monterroso and colleagues, with an educational brayan from [employer]. GINNA-7 Assessment Billing GINNA-7 Assessment Tool: GINNA-7 Assessment 46108 Review of Systems Const All systems reviewed & are unremarkable except as noted in HPI and below Reports no additional complaints Eyes Reports no additional complaints ENT Reports no additional complaints Card Reports no additional complaints Resp Reports no additional complaints GI Reports no additional complaints Reports no additional complaints Physical exam (Primary Care) Vital Signs: Last Vital Signs Pulse 101 H 03/08/24 13:01 BP 116/72 03/08/24 13:01 Pulse Ox 96 03/08/24 13:01 Oxygen Delivery Method Room Air 03/08/24 13:01 BMI result Body Mass Index 32.6 Tobacco/Smoking Status: Tobacco use Status Tobacco use date assessed 03/08/24 03/08/24 13:05 Patient Tobacco Use Status Former Tobacco user 03/08/24 13:05 e-Cigarette/Vaping Use Never Used 03/08/24 13:05 PHQ-9: PHQ-9 Score PHQ-9: Total score 7 03/08/24 13:05 Depression Screening Interpretation: Negative Thrive Assessment: Date of Thrive Assessment Date Thrive assessed 03/08/24 03/08/24 13:05 Currently or been in a relationship where the following occur: No concerns reported Const General: no acute distress HENMT Head: Yes normal to inspection Ears: hearing grossly normal bilaterally Face and sinus: Yes normal facial exam Throat: Yes posterior oropharynx normal Eyes General: appearance normal, both eyes and all related structures Neck Neck: Yes no lymphadenopathy and Yes supple Resp Effort & Inspection: normal respiratory effort Auscultation: clear to auscultation bilaterally Cardio Rhythm: regular rhythm Heart sounds: S1 normal heart sound present and S2 normal heart sound present GI Inspection: Yes normal to inspection Palpation (GI): Soft to palpation Percussion: Yes normal to percussion Auscultation: normal bowel sounds Coding Level of Care Code Est Pt Prev Care 40-64y(54437) Diagnoses Annual physical exam Z00.00 Hyperlipidemia E78.5 Osteoporosis M81.0 Lichen sclerosus L90.0 Additional Codes GINNA-7 Assessment Billing - GINNA-7 Assessment Tool: GINNA-7 Assessment 27685 ([id number]) PHQ-9 - 23729 - PHQ-9 Billing: Yes ([id number]) Assessment & Plan Assessment & Plan (1) Annual physical exam: Code(s): Z00.00 - Encounter for general adult medical examination without abnormal findings Category: Medical Plan: well balanced diet, regular exercise weight loss discussed with the patient she will return for fasting blood work. 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 Panel Fast Today E78.5 - Hyperlipidemia, unspecified, M81.0 - Age-related osteoporosis without current pathological fracture, Z00.00 - Encounter for general adult medical examination without abnormal findings Complete Blood Count Auto Diff Today E78.5 - Hyperlipidemia, unspecified, M81.0 - Age-related osteoporosis without current pathological fracture, Z00.00 - Encounter for general adult medical examination without abnormal findings Lipid Panel Today E78.5 - Hyperlipidemia, unspecified, M81.0 - Age-related osteoporosis without current pathological fracture, Z00.00 - Encounter for general adult medical examination without abnormal findings TSH reflex Free T4 Today E78.5 - Hyperlipidemia, unspecified, M81.0 - Age-related osteoporosis without current pathological fracture, Z00.00 - Encounter for general adult medical examination without abnormal findings Vitamin D 25-OH Total Today E78.5 - Hyperlipidemia, unspecified, M81.0 - Age-related osteoporosis without current pathological fracture, Z00.00 - Encounter for general adult medical examination without abnormal findings 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
[2024-03-08 13:01] VITALS: BP 116/72; PULSE 101; O2SAT 96; BMI 32.6
== END 2024-03-08 14:04 | disposition home or self-care (01) ==
LOC: HO.HMCC 12:54
PROVIDERS: PCP Internal Medicine; Visit Provider Internal Medicine
DX: Z00.00 Encounter for general adult medical examination without abnormal findings (principal); E78.5 Hyperlipidemia, unspecified; M81.0 Age-related osteoporosis without current pathological fracture; L90.0 Lichen sclerosus et atrophicus

== ENCOUNTER → 2024-03-08 12:53 | Outpatient (BNVA) | payer OTHER, SELFPAY | PROVIDERS: PCP Internal Medicine; Visit Provider Internal Medicine | DX: Z00.00 Encounter for general adult medical examination without abnormal findings (principal); E78.5 Hyperlipidemia, unspecified; M81.0 Age-related osteoporosis without current pathological fracture; L90.0 Lichen sclerosus et atrophicus; Z79.899 Other long term (current) drug therapy | CPT/HCPCS: 96127 ==

== ENCOUNTER 2024-08-15 09:23 | Outpatient (AMB) | payer OTHER, SELFPAY ==
--- NOTE | 2024-08-15 09:24 | MHC.OFFVIS ---
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 Has a skin biopsy last year for a hyperpigmented dark black area by Dr. Christian, his practice has since closed. No prior records are available today. History of hysterectomy due to prolapse. She reports using the medication for several days until she feels well and her symptoms are relieved and then stops, she repeats this pattern of use if her symptoms increase. Not currently sexually active due to 's medical conditions, admits to history of persistent dyspareunia after having minor vulvar reconstruction at the time of her prolapse surgery. [facility] Medical History COPD (chronic obstructive pulmonary disease) Esophageal stricture Cough Urinary incontinence Plantar fasciitis Sinusitis Vertigo Annual physical exam Hearing deficit Adenopathy Adenopathy, cervical Asthma Numbness of toes Interstitial lung disease GERD (gastroesophageal reflux disease) Anxiety and depression Surgical History Hx of section S/P AMARILIS (total abdominal hysterectomy) No pertinent past surgical history Family History Father Substance use disorder Mother No problems noted. Son No problems noted. Brother Colon polyp Social History Housing: House Alcohol intake: current Alcohol intake frequency: holidays/special occasions only Patient Tobacco Use Status: Former Tobacco user e-Cigarette/Vaping Use: Never Used Current occupational status: retired Cognitive needs: No Hearing needs: No Vision needs: No Female Reproductive History Menstrual Menopause type: surgical Total pregnancies: 2 Full term: 1 Number of Living Children: 1 Ab induced: 1 Physical Exam Vital Signs: Last Vital Signs BP 110/70 08/15/24 09:25 BMI result Body Mass Index 32.6 Other: External inspection only: Hypopigmentation of the labia minora-scarring, prominent areas to on left upper labia minora and perineal region, no thickening, no excoriations, fissures or lesions. Scattered hyperpigmentation. Assessment & Plan Assessment & Plan (1) Lichen sclerosus: Code(s): L90.0 - Lichen sclerosus et atrophicus Category: Medical Plan Discussed: Use of medication, frequency, where to apply with the use of vulvar diagram. She request Diflucan in case she gets a yeast infection, I advised her if she does go on antibiotics to start a probiotic for Women's Health. Plan to continue using the medication as she has been since it has worked well in the past with intermittent use. Refill sent in. Advised to call if she has any concerns sooner to call the office. Schedule follow up in 3 months which she can do her annual exam same-day visit. Patient to call [facility] and obtain the records from Dr. Christian office. The patient expressed understanding and agreement with the plan of care. All of her questions and concerns were addressed to the best of my ability. This note is constructed using voice recognition software. While every effort has been made to ensure accuracy, respiratory therapy director errors may have been included. Medications: Changed From betamethasone dipropionate 0.05% 1 appl topical BEDTIME PRN 45 grams 0RF allergic reaction To betamethasone dipropionate 0.05% Apply to area twice a week for maintenance 1 appl topical .twice weekly 45 grams 1RF Coding Level of Care Code New Pt Level 3 (49462) Diagnoses Lichen sclerosus L90.0
[2024-08-15 09:25] VITALS: BP 110/70; BMI 32.6
== END 2024-08-15 10:41 | disposition home or self-care (01) ==
LOC: HO.HWS 09:23
PROVIDERS: PCP Internal Medicine; Visit Provider Advanced Practice Midwife
DX: L90.0 Lichen sclerosus et atrophicus (principal)
CPT/HCPCS: 99203

== ENCOUNTER → 2024-08-15 09:23 | Outpatient (BNVA) | payer OTHER, SELFPAY | PROVIDERS: PCP Internal Medicine; Visit Provider Advanced Practice Midwife ==

== ENCOUNTER 2024-10-18 07:36 | Outpatient (AMB) | payer OTHER, SELFPAY ==
--- NOTE | 2024-10-18 07:36 | MHC.OFFVIS ---
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 She is doing well with strike warfare/missile systems officer concerns: Currently using topical corticosteroid for her lichen sclerosus, reports doing well with twice a week dosing. Previously had some burning and discomfort which has since resolved. Has some urinary symptoms at times with frequency. Currently not sexually active due to partners medical concerns. Denies any vaginal dryness or irritation. Attempting to eat a healthy diet with calcium and vitamin D and stays active with some exercise. Concerned about her weight gain. History of hysterectomy due to heavy menstrual bleeding, she reports normal Pap history in the past. Last mammogram; not up to date. Colonoscopy is UTD. Denies any family history of breast, ovarian or colon cancer. [facility] Medical History (Updated 10/18/24 @ 08:35 by Yanely Paredes CNM) Lichen sclerosus et atrophicus of the vulva COPD (chronic obstructive pulmonary disease) Esophageal stricture Cough Urinary incontinence Plantar fasciitis Sinusitis Vertigo Annual physical exam Hearing deficit Adenopathy Adenopathy, cervical Asthma Numbness of toes Interstitial lung disease GERD (gastroesophageal reflux disease) Anxiety and depression Surgical History Hx of section S/P AMARILIS (total abdominal hysterectomy) No pertinent past surgical history Family History Father Substance use disorder Mother No problems noted. Son No problems noted. Brother Colon polyp Brother Prostate CA Brother Prostate CA Social History Housing: House Alcohol intake: current Alcohol intake frequency: holidays/special occasions only Patient Tobacco Use Status: Former Tobacco user e-Cigarette/Vaping Use: Never Used Current occupational status: retired Cognitive needs: No Hearing needs: No Vision needs: No Female Reproductive History Menstrual Menopause type: surgical Total pregnancies: 2 Full term: 1 Number of Living Children: 1 Ab spontaneous: 1 Date of last Bone Density Screenin05/03/23 Review of Systems Const All systems reviewed & are unremarkable except as noted in HPI and below Reports as per HPI Eyes Reports no additional complaints ENT Reports no additional complaints Card Reports no additional complaints Resp Reports no additional complaints GI Reports as per HPI and Reports no additional complaints Reports as per HPI Musc Reports no additional complaints Skin/Breast Reports as per HPI Neuro Reports no additional complaints Psych Reports no additional complaints Endo Reports no additional complaints Romaine/Lymph Reports no additional complaints Aller/Immun Reports no additional complaints Physical Exam Vital Signs: Last Vital Signs BP 110/72 10/18/24 07:38 BMI result Body Mass Index 31.8 Const General: cooperative, healthy appearing, no acute distress, well developed and alert Orientation/consciousness: patient oriented x3 HEENT Head: Yes normal to inspection Eyes General: appearance normal, both eyes and all related structures Neck Neck: Yes normal visual inspection Thyroid: Thyroid normal Chest Chest palpation & inspection: normal inspection of the chest and other (no puckering, dimpling, peau de orange, retraction, discharge, masses) Breast/axilla inspection: normal inspection of the breasts Breast/axilla palpation: normal palpation of the breasts Resp Effort & Inspection: normal respiratory effort GI Inspection: Yes normal to inspection Palpation (GI): Soft to palpation Rectal Exam - Female: deferred Other: Scattered hypopigmentation from clitoral to perineal body predominantly bilateral labia minora, no thickening or parchment, no excoriations or lesions. General: Yes bladder normal to palpation External Female Exam: normal external appearance and normal appearance of the urethra Speculum Exam - Vagina: normal appearance of the vagina, normal palpation, normal vaginal discharge and vagina atrophic Speculum Exam - Cervix: normal appearance of the cervix and Cervix absent (vag cuff, no lesions or nodules) Bimanual exam- vagina & uterus: normal bimanual exam, normal palpation, bladder normal to palpation and uterus absent Bimanual Exam- Adnexa, other: no masses Skin General skin exam: no rashes or lesions noted Rashes: no rashes Neuro General: patient oriented x3 Cognition (Neuro): normal cognition Extrem General: Yes normal to inspection Psych Attitude: cooperative Thought process: Normal thought process present Assessment & Plan Assessment & Plan (1) Encounter for well woman exam with routine gynecological exam: Code(s): Z01.419 - Encounter for gynecological examination (general) (routine) without abnormal findings Category: Medical Plan: Discussed: Current recommendations for pap smears per ASCCP guidelines. Breast awareness, periodic self breast exams and yearly mammogram. Stressed the importance of early diagnosis through screening. Mammogram ordered. Sign for records from Dr. Perez office to obtain skin biopsy results, last mammogram, and any pertinent strike warfare/missile systems officer information. Encouraged individual counseling or couples counseling regarding intimacy and relationship concerns. Maintain a healthy lifestyle, well balanced diet including Calcium 1,200 mg and Vitamin D 600 IU daily, and routine exercise. Patient verbalizes understanding and agrees to the plan of care. She was given opportunity to ask questions and all questions were answered to the best of my ability. RTO in 1 year for annual strike warfare/missile systems officer exam. This note is constructed using voice recognition software. While every effort has been made to ensure accuracy, marketing admin errors may have been included. (2) Lichen sclerosus et atrophicus of the vulva: Code(s): N90.4 - Leukoplakia of vulva Category: Medical Plan Discussed: Overall treatment for lichen sclerosus, use of medication and tapering, long-term care. Lowering dosage of medication, follow up in 2 months, consider estrogen therapy if indicated at that visit. Advised to call sooner if any questions or concerns. Total time I personally spent on visit and management today: ?20 minutes. Time spent included review of pertinent office notes in the electronic health record; review of laboratory and imaging results; review of personal family medical history; performing physical exam; discussing diagnosis and plan of care with the patient; documenting the encounter in the EMR. The patient expressed understanding and agreement with the plan of care. All of her questions and concerns were addressed to the best of my ability. Orders: Orders MM tomosynthesis screening BI Today Z12.31 - Encounter for screening mammogram for malignant neoplasm of breast Medications: New hydrocortisone valerate 0.2% apply to the area a thin coat, may increase for a week, then taper off as directed 1 appl topical BEDTIME PRN 45 grams 0RF rash Discontinued betamethasone dipropionate 0.05% Apply to area twice a week for maintenance Discontinued Reason: Patient Completed Course 1 appl topical .twice weekly 45 grams 1RF Coding Level of Care Code Est Pt Level 2 (57895) Est Pt Prev Care 40-64y(50741) Diagnoses Encounter for well woman exam with routine gynecological exam Z01.419 Lichen sclerosus et atrophicus of the vulva N90.4
[2024-10-18 07:38] VITALS: BP 110/72; BMI 31.8
== END 2024-10-18 09:15 | disposition home or self-care (01) ==
LOC: HO.HWS 07:36
PROVIDERS: PCP Internal Medicine; Visit Provider Advanced Practice Midwife
DX: Z01.419 Encounter for gynecological examination (general) (routine) without abnormal findings (principal); N90.4 Leukoplakia of vulva
CPT/HCPCS: 99212; 99459

== ENCOUNTER 2024-10-18 07:36 | Outpatient (REF) | payer OTHER, SELFPAY ==
[2024-10-18 10:18] LABS: MANUAL DIFF FLAG NO
[2024-10-18 10:36] LABS: Basophils Absolute Auto 0.1 X10*3/uL (0.0-0.2); Basophils Percent Auto 0.7 % (0-2); Eosinophils Absolute Auto 0.3 X10*3/uL (0.0-0.4); Eosinophils Percent Auto 2.8 % (0-4); Hematocrit 36.8 % (37.0-47.0); Hemoglobin 12.5 g/dl (12.0-16.0); Imm Gran Abs Auto 0.03 X10*3/uL (0.00-0.03); Imm Gran Pct Auto 0.3 % (0.0-0.4); Lymphocytes Absolute Auto 1.6 X10*3/uL (1.2-4.9); Lymphocytes Percent Auto 18.2 % (20-40); Mean Corpuscular Hemoglobin 25.4 pg (27.0-33.0); Mean Corpuscular Volume 74.8 fL (80.0-98.0); Mean Platelet Volume 12.7 fL (9.4-12.3); Monocytes Absolute Auto 0.8 X10*3/uL (0.1-1.2); Monocytes Percent Auto 8.8 % (2-11); Neutrophils Absolute Auto 6.1 x10*3/uL (2.0-8.3); Neutrophils Percent Auto 69.2 % (45-73); Platelet Count 188 X10*3/uL (160-400); Red Blood Count 4.92 X10*6/uL (4.20-5.50); White Blood Count 8.8 X10*3/uL (4.8-10.8)
[2024-10-18 11:03] LABS: Alanine Aminotransferase 23 U/L (0-31); Albumin Level 4.3 g/dL (3.5-5.0); Alkaline Phosphatase 81 U/L (39-117); Anion Gap 12 (12-20); Aspartate Amino Transferase 26 U/L (5-31); Bilirubin Total 0.4 mg/dL (0.0-1.0); Blood Urea Nitrogen 14 mg/dL (9-16); Calcium 9.2 mg/dL (8.4-10.2); Carbon Dioxide 28 mmol/L (22-29); Chloride 107 mmol/L (96-108); Cholesterol 164 mg/dL (<200); Estimated Glomerular Filt Rate > 60; Glucose Fasting 104 mg/dL (60-99); HDL Cholesterol 61 mg/dL (>40); LDL Cholesterol Calculated 74 mg/dL (<100); Potassium 3.8 mmol/L (3.3-5.1); Sodium 143 mmol/L (135-145); Total Protein 6.9 g/dL (6.5-8.0); Triglycerides 145 mg/dL (<150)
[2024-10-18 11:24] LABS: TSH reflex Free T4 2.93 uIU/mL (0.32-4.0)
== END 2024-10-18 07:37 | disposition home or self-care (01) ==
LOC: HO.HMGCLDS 07:36
PROVIDERS: PCP Internal Medicine; Referring Provider Internal Medicine; Visit Provider Advanced Practice Midwife
DX: Z00.00 Encounter for general adult medical examination without abnormal findings (principal); E78.5 Hyperlipidemia, unspecified; M81.0 Age-related osteoporosis without current pathological fracture
CPT/HCPCS: 36415; 80053; 80061; 82306; 84443; 85025

== ENCOUNTER 2025-02-07 10:17 | Outpatient (REF) | payer OTHER, SELFPAY ==
[2025-02-07 15:11] LABS: Chlamydia pneumoniae PCR Not Detected (Not Detect.); Coronavirus 229E PCR Not Detected (Not Detect.); Coronavirus HKU1 PCR Not Detected (Not Detect.); Coronavirus NL63 PCR Not Detected (Not Detect.); Coronavirus OC43 PCR Not Detected (Not Detect.); RSV PCR Not Detected (Not Detect.); Rhino/Enterovirus PCR Not Detected (Not Detect.); SARS-CoV-2 PCR Not Detected (Not Detect.)
[2025-02-07 15:14] LABS: Influenza A H1 PCR Not Detected (Not Detect.); Influenza A H1-2009 PCR Not Detected (Not Detect.); Influenza A H3 PCR Not Detected (Not Detect.)
== END 2025-02-07 10:18 | disposition home or self-care (01) ==
LOC: HO.LNP 10:17
PROVIDERS: Physician Assistant Medical; PCP Internal Medicine; Visit Provider Internal Medicine
DX: N63.20 Unspecified lump in the left breast, unspecified quadrant (principal); J06.9 Acute upper respiratory infection, unspecified
CPT/HCPCS: 87633

== ENCOUNTER 2025-02-07 11:31 | Outpatient (AMB) | payer OTHER, SELFPAY ==
[2025-02-07 11:33] VITALS: BP 110/74; PULSE 86; RESP 19; TEMP 36.5; O2SAT 97; BMI 31.6
--- NOTE | 2025-02-07 11:33 | MHC.PC.OV ---
Vital Signs 02/07/25 11:33 Height 5 ft 2 in Weight 173 lb BMI 31.6 BP 110/74 Blood Pressure Location Lt brachial Position Sitting Respiration 19 Pulse 86 Pulse Source Pulse Oximeter Temp 97.7 F Temp Source Oral Pulse Oximetry (%) 97 Oxygen Delivery Method Room Air Intake Visit Reasons: lump on breast Intake Note: Pt is here today for a sick visit. Pt c/o lump on her L breast. Allergies doxycycline Adverse Reaction (Intermediate, Verified 02/07/25 10:25) vomiting Medication List - Last Reconciled 02/07/25 by Elizabeth aSucedo MD amoxicillin-pot clavulanate 875-125 mg 1 tab PO Q12H famotidine 20 mg PO DAILY fluticasone propionate 50 mcg/actuation 1 spray intranasal Q12H hydrocortisone valerate 0.2% 1 appl topical BEDTIME PRN omeprazole 20 mg PO BID PRN oxybutynin chloride ER 5 mg PO DAILY pravastatin 40 mg PO DAILY Tobacco use date assessed: 03/08/24 Dental Screening Dental Screen Date: 03/08/24 HPI lump on breast HPI Details Patient complains of finding a lump in the left breast a few days ago. She denies pain or nipple discharge. She has not had a mammogram for over 4 years. [facility] Medical History (Updated 02/07/25 @ 11:59 by Elizabeth Saucedo MD) Breast lump Lichen sclerosus et atrophicus of the vulva COPD (chronic obstructive pulmonary disease) Esophageal stricture Cough Urinary incontinence Plantar fasciitis Sinusitis Vertigo Annual physical exam Hearing deficit Adenopathy Adenopathy, cervical Asthma Numbness of toes Interstitial lung disease GERD (gastroesophageal reflux disease) Anxiety and depression Surgical History Hx of section S/P AMARILIS (total abdominal hysterectomy) No pertinent past surgical history Family History Father Substance use disorder Mother No problems noted. Son No problems noted. Brother Colon polyp Brother Prostate CA Brother Prostate CA Social History Housing: House Alcohol intake: current Alcohol intake frequency: holidays/special occasions only Patient Tobacco Use Status: Former Tobacco user e-Cigarette/Vaping Use: Never Used Current occupational status: retired Cognitive needs: No Hearing needs: No Vision needs: No Questionnaire Thrive Questionnaire Date Thrive assessed: 03/08/24 GINNA-7 AMB Questionnaire GINNA-7 Date GINNA - 7 assessed: 03/08/24 Source: Developed by Drs. Kishor García, Casi Beltran, Vahid Monterroso and colleagues, with an educational brayan from [employer]. Review of Systems Const All systems reviewed & are unremarkable except as noted in HPI and below Card Reports no additional complaints Resp Reports no additional complaints GI Reports no additional complaints Reports no additional complaints Physical exam (Primary Care) Vital Signs: Last Vital Signs Temp 97.7 F 02/07/25 11:33 Pulse 86 02/07/25 11:33 Resp 19 02/07/25 11:33 BP 110/74 02/07/25 11:33 Pulse Ox 97 02/07/25 11:33 Oxygen Delivery Method Room Air 02/07/25 11:33 BMI result Body Mass Index 31.6 Tobacco/Smoking Status: Tobacco use Status Tobacco use date assessed 03/08/24 02/07/25 11:33 Patient Tobacco Use Status Former Tobacco user 02/07/25 11:33 e-Cigarette/Vaping Use Never Used 02/07/25 11:33 Thrive Assessment: Date of Thrive Assessment Date Thrive assessed 03/08/24 02/07/25 11:33 Const General: no acute distress Neck Neck: Yes supple Chest Breast/axilla palpation: normal palpation of the breasts (Right breast), no axillary lymphadenopathy and abnormal palpation of the breast (Left breast behind nipple firm irregular borders tissue palpable, ) Resp Effort & Inspection: normal respiratory effort Auscultation: clear to auscultation bilaterally Cardio Rhythm: regular rhythm Heart sounds: S1 normal heart sound present and S2 normal heart sound present Coding Level of Care Code Est Pt Level 3 (54005) Diagnoses Breast lump N63.0 Assessment & Plan Assessment & Plan (1) Breast lump: Comment: left , behind nipple Code(s): N63.0 - Unspecified lump in unspecified breast Category: Medical Plan: Referred for diagnostic mammogram and ultrasound at [facility] Orders: Orders MM diagnostic mammo BI Today N63.0 - Unspecified lump in unspecified breast US breast LT limited Today N63.0 - Unspecified lump in unspecified breast
== END 2025-02-07 15:06 | disposition home or self-care (01) ==
LOC: HO.HMCC 11:31
PROVIDERS: PCP Internal Medicine; Visit Provider Internal Medicine
DX: N63.0 Unspecified lump in unspecified breast (principal)

== ENCOUNTER 2025-04-15 11:36 | Outpatient (REF) | payer OTHER, MEDICARE, SELFPAY | END 2025-04-15 11:37 | disposition home or self-care (01) | LOC: HO.LAB 11:36 | PROVIDERS: PCP Internal Medicine; Visit Provider Family Medicine | DX: R10.20 Pelvic and perineal pain unspecified side (principal) | CPT/HCPCS: 87086; 99212 ==

== ENCOUNTER 2025-04-15 11:36 | Outpatient (AMB) | payer MEDICARE, OTHER, SELFPAY ==
--- NOTE | 2025-04-15 11:37 | MHC.OFFWIV ---
Intake Vital Signs 04/15/25 11:40 Height 5 ft 2 in Weight 172 lb BMI 31.5 BP 121/69 Blood Pressure Location Rt brachial Position Sitting Pulse 84 Pulse Source Pulse Oximeter Temp 97.5 F Temp Source Oral Pulse Oximetry (%) 97 Oxygen Delivery Method Room Air Intake Visit Reasons: EP - ?uti Intake Note: EP complains of lower back and lower pubic pressure, she is frequency urinate lately (last couple of days 5 times a night). Patient Tobacco Use Status: Former Tobacco user Allergies doxycycline Adverse Reaction (Intermediate, Verified 04/15/25 12:22) vomiting Do you need a note to return to daycare/school/sports/work: No HPI HPI Comments History of Present Illness Details History of Present Illness The patient is a 64 year old female presenting with pelvic pressure. - The patient reports experiencing pressure when urinating for the past couple of weeks, with symptoms progressively worsening over the last four days. - She describes the sensation as a heavy pressure, similar to holding her urine for a long time, which is also felt in her lower back. - The pressure is also present upon standing. - Reports increased urinary frequency the night prior. - She reports frequent constipation - She occasionally uses Dulcolax for her constipation but has not recently used it - The patient underwent a total abdominal hysterectomy - She reports she is due for a colonoscopy - She sees a activity specialist for gynecological care and had a pelvic exam about six months ago or more. - She denies any blood in the urine, abnormal vaginal discharge, nausea, vomiting, or fevers. Review of Systems Constitutional: Negative for fevers, chills Gastroenterology: Negative for nausea or vomiting Genitourinary: Reports pelvic pressure and urinary frequency. Negative for difficulty urinating, dysuria, flank pain, hematuria, vaginal discharge, vaginal pain, abnormal vaginal bleeding Physical Exam Constituational: +Alert and oriented, Well nourished, No acute distress. Pulmonary: No respiratory distress Abdominal: Abodmen soft and nontender to palpation. No suprapubic TTP. No Left or Right CVA TTP Musculoskeletal: Moving all extremities spontaneously and against gravity Psychiatric: Cooperative, Appropriate mood & affect, Normal judgment. [facility] Medical History (Updated 02/07/25 @ 11:59 by Elizabeth Saucedo MD) Breast lump Lichen sclerosus et atrophicus of the vulva COPD (chronic obstructive pulmonary disease) Esophageal stricture Cough Urinary incontinence Plantar fasciitis Sinusitis Vertigo Annual physical exam Hearing deficit Adenopathy Adenopathy, cervical Asthma Numbness of toes Interstitial lung disease GERD (gastroesophageal reflux disease) Anxiety and depression Surgical History Hx of section S/P AMARILIS (total abdominal hysterectomy) No pertinent past surgical history Family History Father Substance use disorder Mother No problems noted. Son No problems noted. Brother Colon polyp Brother Prostate CA Brother Prostate CA Social History Housing: House Alcohol intake: current Alcohol intake frequency: holidays/special occasions only Patient Tobacco Use Status: Former Tobacco user e-Cigarette/Vaping Use: Never Used Current occupational status: retired Cognitive needs: No Hearing needs: No Vision needs: No Physical Exam Vital Signs: Last Vital Signs Temp 97.5 F 04/15/25 11:40 Pulse 84 04/15/25 11:40 BP 121/69 04/15/25 11:40 Pulse Ox 97 04/15/25 11:40 Oxygen Delivery Method Room Air 04/15/25 11:40 BMI result Body Mass Index 31.5 Assessment & Plan Assessment & Plan (1) Pelvic pressure in female: Code(s): R10.20 - Pelvic and perineal pain unspecified side Plan - The patient's symptoms include urinary pressure, frequency, and urgency. - A urinalysis was performed and was negative for both leukocyte esterase and nitrites, making a urinary tract infection (UTI) less likely. - Will send out urine culture for confirmation - Given the patient's history of constipation, discussed stool burden may contribute to symptoms - Recommended starting MiraLax to ensure regular bowel movements - Advised to schedule colonoscopy for routine colon cancer screening - Patient advised to stay well hydrated and urinate frequently. - Advised to follow up if worsening symptoms, fevers, or flank pain occur. Patient was informed and verbally consented to the use of an ambient scribe for clinic note documentation during the visit. Orders: Orders Urine Culture Today R10.20 - Pelvic and perineal pain unspecified side Coding Level of Care Code Est Pt Level 3 (95776) Diagnoses Pelvic pressure in female R10.20
[2025-04-15 11:40] VITALS: BP 121/69; PULSE 84; TEMP 36.4; O2SAT 97; BMI 31.5
== END 2025-04-15 13:07 | disposition home or self-care (01) ==
PROVIDERS: PCP Internal Medicine; Visit Provider Family Medicine
DX: R10.20 Pelvic and perineal pain unspecified side (principal)

== ENCOUNTER 2025-04-17 12:22 | Outpatient (AMB) | payer OTHER, SELFPAY ==
--- NOTE | 2025-04-17 12:31 | A.OFFPC_ITS ---
Vital Signs 04/17/25 12:36 Height 5 ft 2 in Weight 170 lb BMI 31.1 BP 112/78 Blood Pressure Location Lt brachial Position Sitting Respiration 18 Pulse 79 Pulse Source Pulse Oximeter Temp 97.5 F Temp Source Oral Pulse Oximetry (%) 98 Oxygen Delivery Method Room Air Intake Visit Reasons: Annual PE Intake Note: Pt is here today for PE. Allergies doxycycline Adverse Reaction (Intermediate, Verified 04/17/25 12:52) vomiting Medication List - Last Reconciled 04/17/25 by Elizabeth Saucedo MD famotidine 20 mg PO DAILY fluconazole 150 mg PO Q3D 2 doses fluticasone propionate 50 mcg/actuation 1 spray intranasal Q12H hydrocortisone valerate 0.2% 1 appl topical BEDTIME PRN omeprazole 20 mg PO BID PRN pravastatin 40 mg PO DAILY Tobacco use date assessed: 04/17/25 Fall risk assessment: No Falls in past year Last assessed Fall Risk: 04/17/25 Dental Screening Dental Screen Date: 04/17/25 Did you have a dental visit in the last 12 months?: Yes Did you have a dental problem in the last 6 months where you did not have access to dental care?: No Was dental information given to patient?: Patient has dentist HPI Annual PE HPI Details Pt presents for PE. Patient complains of worsening of urinary incontinence and would like to be referred to urogynecologist. She complains of recurrent swelling and tenderness over right maxillary salivary gland on and off lasting for few days for the last 2 months PFSH Medical History Salivary gland enlargement Breast lump Lichen sclerosus et atrophicus of the vulva COPD (chronic obstructive pulmonary disease) Esophageal stricture Cough Urinary incontinence Plantar fasciitis Sinusitis Vertigo Annual physical exam Hearing deficit Adenopathy Adenopathy, cervical Asthma Numbness of toes Interstitial lung disease GERD (gastroesophageal reflux disease) Anxiety and depression Surgical History Hx of colonoscopy Hx of section S/P AMARILIS (total abdominal hysterectomy) No pertinent past surgical history Family History Father Substance use disorder Mother No problems noted. Son No problems noted. Brother Colon polyp Brother Prostate CA Brother Prostate CA Social History Housing: House Alcohol intake: current Alcohol intake frequency: holidays/special occasions only Patient Tobacco Use Status: Former Tobacco user e-Cigarette/Vaping Use: Never Used service: No Current occupational status: retired Cognitive needs: No Hearing needs: No Vision needs: No Questionnaire PHQ-9 Over the last 2 weeks, how often have you been bothered by any of the following problems? 1. Little interest or pleasure in doing things: several days 2. Feeling down, depressed, or hopeless: several days 3. Trouble falling or staying asleep, or sleeping too much: more than half the days 4. Feeling tired or having little energy: more than half the days 5. Poor appetite or overeating: not at all 6. Feeling bad about yourself - or that you are a failure or have let yourself or your family down: not at all 7. Trouble concentrating on things, such as reading the newspaper or watching television: not at all 8. Moving or speaking so slowly that other people could have noticed. Or the opposite - being so fidgety or restless that you have been moving around a lot more than usual: several days 9. Thoughts that you would be better off or of hurting yourself in some way: not at all Total score: 7 Depression Screening Interpretation: Negative Depression Screening Done: Yes 96528 - PHQ-9 Billing: Yes Source: Developed by Drs. Kishor García, Casi Beltran, Vahid Monterroso and colleagues, with an educational brayan from [employer]. Thrive Questionnaire Date Thrive assessed: 04/17/25 I am a: Patient What is your living situation today?: I have a steady place to live Within the past 12 months, did the food you bought not last and you didn't have the money to get more?: Never true Within the past 12 months, did you worry whether your food would run out before you got money to buy more?: Never true Do you have trouble paying for medicines?: Yes Do you have trouble getting transportation to medical appointments?: No Do you have trouble paying your heating and electricity bill?: Yes Do you have trouble taking care of your child, family member or friend?: Yes Do you have trouble with day-to-day activities such as bathing, preparing meals, shopping, managing finances, etc.?: No Are you currently unemployed and looking for a job?: No Are you interested in more education?: No Please select the resources that you would like help with: Paying for medicine and Utilities Currently or been in a relationship where the following occur: No concerns reported THRIVE Score: 1 AUDIT C Alcohol Use Questionnaire (AUDIT-C) 1. How often do you have a drink containing alcohol?: 2-3 times a week 2. How many drinks containing alcohol do you have on a typical day when you are drinking?: 1 or 2 3. How often do you have six or more drinks on one occasion?: Never Total Score: 3 GINNA-7 AMB Questionnaire GINNA-7 Date GINNA - 7 assessed: 04/17/25 Feeling nervous, anxious, or on edge: 1 = Several days Not being able to stop or control worryin = More than half the days Worrying too much about different things: 2 = More than half the days Trouble relaxin = More than half the days Being so restless that it is hard to sit still: 3 = Nearly every day Becoming easily annoyed or irritable: 2 = More than half the days Feeling afraid as if something awful might happen: 1 = Several days Total GINNA-7 score (0-4 normal; 5-9 mild; 10-14 moderate; 15-21 severe): 13 Source: Developed by Drs. Kishor García, Casi Beltran, Vahid Monterroso and colleagues, with an educational brayan from [employer]. GINNA-7 Assessment Billing GINNA-7 Assessment Tool: GINNA-7 Assessment 14160 Review of Systems Const All systems reviewed & are unremarkable except as noted in HPI and below Eyes Reports no additional complaints ENT Reports no additional complaints Card Reports no additional complaints Resp Reports no additional complaints GI Reports no additional complaints Physical exam (Primary Care) Vital Signs: Last Vital Signs Temp 97.5 F 04/17/25 12:36 Pulse 79 04/17/25 12:36 Resp 18 04/17/25 12:36 BP 112/78 04/17/25 12:36 Pulse Ox 98 04/17/25 12:36 Oxygen Delivery Method Room Air 04/17/25 12:36 BMI result Body Mass Index 31.1 Tobacco/Smoking Status: Tobacco use Status Tobacco use date assessed 04/17/25 04/17/25 12:57 Patient Tobacco Use Status Former Tobacco user 04/17/25 12:31 e-Cigarette/Vaping Use Never Used 04/17/25 12:31 PHQ-9: PHQ-9 Score PHQ-9: Total score 7 04/17/25 13:09 Depression Screening Interpretation: Negative Thrive Assessment: Date of Thrive Assessment Date Thrive assessed 04/17/25 04/17/25 12:57 Currently or been in a relationship where the following occur: No concerns reported Const General: no acute distress HENMT Other: There is slight asymmetry of right maxillary salivary gland, slight tenderness, no erythema or warmth, no cervical adenopathy appreciated Head: Yes normal to inspection Mouth: Normal oral and palatal mucosa present Throat: Yes posterior oropharynx normal Eyes General: appearance normal, both eyes and all related structures Neck Neck: Yes no lymphadenopathy and Yes supple Resp Effort & Inspection: normal respiratory effort Auscultation: clear to auscultation bilaterally Cardio Rhythm: regular rhythm Heart sounds: S1 normal heart sound present and S2 normal heart sound present GI Inspection: Yes normal to inspection Palpation (GI): Soft to palpation Percussion: Yes normal to percussion Auscultation: normal bowel sounds Coding Level of Care Code Est Pt Prev Care 40-64y(35399) Diagnoses Osteoporosis M81.0 Annual physical exam Z00.00 Hx of colonoscopy Z98.890 Urinary incontinence R32 Hyperlipidemia E78.5 Salivary gland enlargement K11.1 Additional Codes GINNA-7 Assessment Billing - GINNA-7 Assessment Tool: GINNA-7 Assessment 18963 ([id number]) PHQ-9 - 78469 - PHQ-9 Billing: Yes ([id number]) Assessment & Plan Assessment & Plan (1) Osteoporosis: Comment: DEXA 05/25 T score -2.5, patient can not take Fosamax because of hiatal hernia and and recurrent esophageal stricture Code(s): M81.0 - Age-related osteoporosis without current pathological fracture Category: Medical Plan: Continue vitamin-D and calcium supplement, weight-bearing exercises discussed with the patient, she declined repeat DEXA (2) Annual physical exam: Code(s): Z00.00 - Encounter for general adult medical examination without abnormal findings Category: Medical Plan: well balanced diet, regular exercise, weight loss discussed, pt is up to date mammogram and will call [facility] to schedule follow-up colonoscopy (3) Hx of colonoscopy: Comment: 2019, Dr. Pascual [facility], x of colon ca Code(s): Z98.890 - Other specified postprocedural states Category: Surgical Plan: Patient is due for repeat colonoscopy at [facility] (4) Urinary incontinence: Code(s): R32 - Unspecified urinary incontinence Category: Medical Plan: Referred to urogynecology (5) Hyperlipidemia: Code(s): E78.5 - Hyperlipidemia, unspecified Category: Medical Plan: Continue pravastatin (6) Salivary gland enlargement: Comment: R maxillary Code(s): K11.1 - Hypertrophy of salivary gland Category: Medical Plan: Obtain ultrasound to evaluate Orders: Orders Comprehensive [place]. Panel Fast 2 Months E78.5 - Hyperlipidemia, unspecified Lipid Panel 2 Months E78.5 - Hyperlipidemia, unspecified Complete Blood Count Auto Diff 2 Months E78.5 - Hyperlipidemia, unspecified US soft tiss head and/or neck Today K11.1 - Hypertrophy of salivary gland Referrals Gastroenterology Referral Z98.890 - Other specified postprocedural states Urogynecology Referral R32 - Unspecified urinary incontinence
[2025-04-17 12:36] VITALS: BP 112/78; PULSE 79; RESP 18; TEMP 36.4; O2SAT 98; BMI 31.1
== END 2025-04-17 16:15 | disposition home or self-care (01) ==
LOC: HO.HMCC 12:23
PROVIDERS: PCP Internal Medicine; Visit Provider Internal Medicine
DX: Z00.00 Encounter for general adult medical examination without abnormal findings (principal); M81.0 Age-related osteoporosis without current pathological fracture; Z98.890 Other specified postprocedural states; R32 Unspecified urinary incontinence; E78.5 Hyperlipidemia, unspecified; K11.1 Hypertrophy of salivary gland

== ENCOUNTER → 2025-04-17 12:22 | Outpatient (BNVA) | payer OTHER, SELFPAY | PROVIDERS: PCP Internal Medicine; Visit Provider Internal Medicine | DX: Z00.00 Encounter for general adult medical examination without abnormal findings (principal); R32 Unspecified urinary incontinence; M81.0 Age-related osteoporosis without current pathological fracture; E78.5 Hyperlipidemia, unspecified; K11.1 Hypertrophy of salivary gland; Z98.890 Other specified postprocedural states | CPT/HCPCS: 96127 ==